=== PATIENT | male | born 1975 | race Caucasian/White ===

== ENCOUNTER 2021-01-19 16:54 | Emergency (ER) | payer OTHER, BC, SELFPAY ==
--- NOTE | ~2021-01-19 | XR_ITS ---
EXAMINATION: XR finger 4th LT min 2V DATE: 01/19/2021 17:32 INDICATION: Right hand fourth digit injury. TECHNIQUE: 4 views of right hand fourth digit were obtained. COMPARISON: None. FINDINGS: Bone alignment is normal. No fracture. Joint spaces are well maintained. Bandage material i s noted. IMPRESSION: 1. No fracture. Reviewed, dictated and finalized at location A. IMPRESSION: 1. No fracture.
[2021-01-19 17:04] VITALS: BP 153/75; PULSE 84; RESP 16; TEMP 36.4; O2SAT 96
--- NOTE | 2021-01-19 17:04 | ED.UPPEXIN ---
HPI - Extremity Injury (Upper) General Chief Complaint: Skin/Abscess/Foreign Body Stated Complaint: left hand ring finger lac Time Seen by Provider: 01/19/21 17:30 History of Present Illness HPI narrative: 45-year-old male presents with concern for crush injury to the third digit of the left hand. Reports just prior to arrival allayed fell on his digit. Reports bleeding, swelling. Reports he has been holding pressure to the bleeding wound. Denies decreased strength, range of motion, sensation of the digit. Reports he is up-to-date on his tetanus vaccination MD complaint: injury to: left and finger Related Data Home Medications Medication Instructions Recorded Confirmed No Home Medications 01/19/21 01/19/21 Allergies Allergy/AdvReac Type Severity Reaction Status Date / Time NKDA Allergy Unknown Uncoded 03/09/03 13:12 NKFA Allergy Unknown Uncoded 03/09/03 13:12 NO KNOWN DRUG ALLERGIES Allergy Y Uncoded 03/09/03 14:10 (Class Allergy) Review of Systems Review of Systems: Narrative: CONSTITUTIONAL: Denies malaise, chills, sweats, or fever. EYES: Denies visual changes, redness, or discharge. ENT: Denies rhinorrhea, congestion, sinus pain, otalgia or sore throat. CARDIOVASCULAR: Denies chest pain, palpitations, or edema. RESPIRATORY: Denies cough or dyspnea. GASTROINTESTINAL: Denies abdominal pain, nausea, vomiting, diarrhea, bloody, or mucous stools. GENITOURINARY: Denies dysuria or hematuria. SKIN: Denies rash or itching. MUSCULOSKELETAL: Denies back pain, joint pain, or myalgia. NEUROLOGIC: Denies numbness, weakness, or headache. PSYCHIATRIC: Denies anxiety or depression. PMFSH Social History Social History Gender identity (if verbalized by the patient): Male Exam Narrative: Exam Narrative: GENERAL: Well-appearing, well-nourished, and in no acute distress. HEAD: Normocephalic EYES: PERRLA, conjunctivae clear NECK: Supple. CHEST: Speaks in full sentences. No respiratory distress. HEART: Regular rate and rhythm. Normal and equal peripheral pulses. EXTREMITIES: Third digit of left hand has normal strength and sensation. 5/5 strength with digit flexion, extension. Range of motion normal. No clubbing, cyanosis, or edema noted. General tenderness. Normal digital cascade with flexion of fingers, median, ulnar and radial nerve intact. Normal sensation of each side of finger. Good capillary refill and radial pulse. Distal capillary refill less than 3 seconds. SKIN: Warn, dry, intact, pink. 1.5 cm linear laceration into the subcutaneous tissue noted to the palmar aspect with third digit of the left hand at the MIP joint, no bleeding noted. 2.5 cm irregular deep laceration noted to the dorsal aspect of the third digit of left hand at the MIP joint with copious amount of bleeding; due to large amount of bleeding unable to thoroughly explore the depth of the wound NEURO: Alert and oriented x3. PSYCH: Normal mood and affect Course Vital Signs Vital signs: Vital Signs Temperature 97.5 F L 01/19/21 17:04 Pulse Rate 84 01/19/21 17:04 Respiratory Rate 16 01/19/21 17:04 Blood Pressure 153/75 H 01/19/21 17:04 Pulse Oximetry 96 01/19/21 17:04 Temperature 97.5 F L 01/19/21 17:04 Pulse Rate 84 01/19/21 17:04 Respiratory Rate 16 01/19/21 17:04 Blood Pressure 153/75 H 01/19/21 17:04 Pulse Oximetry 96 01/19/21 17:04 Procedures Laceration Laceration 1: Date: 01/19/21 Time: 18:00 Site: hand Side (If applicable): left Size (cm): 2.5 Description: irregular Depth: involves muscle layer Local Anesthetic: lidocaine 1% Pre-repair: irrigated extensively ====== Skin Level ====== Skin layer closed with: nylon Size (cm): 5-0 Number of sutures: 8 Technique: simple, interrupted ====== Subcutaneous Layer ====== ====== Muscle Layer ====== ====== Tendon Layer ====== Dressing: Pressur
[2021-01-19] MEDS: LIDOCAINE, EPINEPHRINE, TETRACAINE VISCOUS SOLN 3 ML TOPICAL (17:12)
== END 2021-01-19 18:38 | disposition home or self-care (01) ==
PROVIDERS: Emergency Provider Nurse Practitioner
DX: S61.215A Laceration without foreign body of left ring finger without damage to nail, initial encounter (principal); S67.195A Crushing injury of left ring finger, initial encounter; W20.8XXA Other cause of strike by thrown, projected or falling object, initial encounter
CPT/HCPCS: 12002; 73140; 99213; G0463

== ENCOUNTER 2021-01-30 08:29 | Emergency (ER) | payer OTHER, SELFPAY ==
[2021-01-30 08:34] VITALS: BP 130/77; PULSE 77; RESP 16; TEMP 36.8; O2SAT 100
--- NOTE | 2021-01-30 08:40 | ED.GENADULT ---
HPI - General Adult General Chief complaint: Wound/Laceration Stated complaint: remove stitches Time Seen by Provider: 01/30/21 08:40 Source: patient and RN notes reviewed Mode of arrival: ambulatory Limitations: no limitations History of Present Illness HPI narrative: 45-year-old male presents to have sutures removed from LT 4th (index) finger. Healing wound to LT 4th (index) finger with [address] No concern for infection of wound. Mild tenderness, erythema, and swelling to area. No fever or chills. No drainage. No streaking. Gonzalo has been following recent discharge instructions. Denies nausea and vomiting. Tolerating po intake well. Remains active. Immunizations up-to-date. The patient reports he have not been diagnosed with COVID-19. The patient reports he received 2 [employer] COVID-19 vaccines. The patient reports he is not waiting for the results of a COVID-19 lab test. The patient reports he do not have chills, weakness, or fatigue. The patient reports he do not have a new or worsening cough or shortness of breath. Denies chest pain. The patient reports he do not have any rhinorrhea, congestion, loss of taste or smell, sore throat. abdominal pain, and diarrhea. Denies recent traveling. Denies concerns for COVID-19 or exposures been home with limited outdoor exposure except for essential household needs, work, and return home. At this time, patient is not suspected of having COVID-19. Some parts of this dictation were generated by voice recognition software and may contain typographical and/or grammatical inaccuracies. Related Data Home Medications Medication Instructions Recorded Confirmed No Home Medications 01/19/21 01/30/21 Allergies Allergy/AdvReac Type Severity Reaction Status Date / Time No Known Allergies Allergy Verified 01/30/21 08:42 Review of Systems Review of Systems: Narrative: CONSTITUTIONAL: Denies fever, chills, sweats. EYES: Denies visual changes, redness, discharge. ENT: Denies rhinorrhea, congestion, sore throat, otalgia. CARDIOVASCULAR: Denies chest pain, palpitations, edema. RESPIRATORY: Denies dyspnea, wheezing, cough. GASTROINTESTINAL: Denies abdominal pain, nausea, vomiting, diarrhea. SKIN: Denies rash or itching. Complains of needing sutures removed from left 4th (index) finger. MUSCULOSKELETAL: Denies acute back pain, joint pain, or myalgia. NEUROLOGIC: Denies numbness or focal weakness. PSYCHIATRIC: Denies anxiety or depression. All other systems reviewed are negative, except as documented in HPI and below. [facility] Past Medical History Medical History (Updated 01/31/21 @ 00:01 by Daylin Calderon) Left knee pain Surgical History Surgical History (Updated 01/30/21 @ 10:46 by PADDY Burch) History of left knee surgery ACL repair and meniscus cleaned Family History Family History (Updated 01/30/21 @ 10:47 by PADDY Burch) Father Alive and well Mother Alive and well Social History Social History (Updated 01/30/21 @ 10:49 by PADDY Burch) Smoking packs per day: 0.75 Smoking cigarettes per day: 15.0 Years smoked: 20 Smoking pack-years: 15.00 Smoking status: Current every day smoker Tobacco type: cigarettes Second hand tobacco smoke exposure: Yes Alcohol intake: current Substance use: never Living arrangements: with family Occupation/Education: occupation Gender identity (if verbalized by the patient): Male Sexual Orientation (if Verbalized by the Patient): Straight or Heterosexual Comments At time of signature, agree with nurse past medical, surgical, social, and family history. There is no relevant family history pertinent to the presenting complaint. Exam Narrative: Exam Narrative: GENERAL: This is a well-nourished, well-developed patient, in no apparent distress. Talks in full sentences and ambulates with steady gait without dyspnea. HEAD: Atraumatic. Normocephalic. No tempo
== END 2021-01-30 09:10 | disposition home or self-care (01) ==
PROVIDERS: Emergency Provider Nurse Practitioner Family
DX: S61.215D Laceration without foreign body of left ring finger without damage to nail, subsequent encounter (principal); X58.XXXD Exposure to other specified factors, subsequent encounter; F17.210 Nicotine dependence, cigarettes, uncomplicated
CPT/HCPCS: 99211; G0463